=== PATIENT | male | born 1990 | race Asian ===

== ENCOUNTER 2021-05-22 09:04 | Outpatient (REF) | payer OTHER, SELFPAY ==
[2021-05-22 10:20] LABS: MANUAL DIFF FLAG NO
[2021-05-22 11:05] LABS: Basophils Percent Auto 0.2 % (0-2); Eosinophils Absolute Auto 0.1 X10*3/uL (0.0-0.4); Eosinophils Percent Auto 1.1 % (0-4); Hematocrit 45.8 % (42.0-52.0); Hemoglobin 15.6 g/dl (14.0-18.0); Imm Gran Abs Auto 0.02 X10*3/uL (0.00-0.03); Imm Gran Pct Auto 0.4 % (0.0-0.4); Lymphocytes Absolute Auto 2.1 X10*3/uL (1.2-4.9); Mean Corpuscular HGB Conc 34.1 g/dl (31.0-36.0); Mean Corpuscular Hemoglobin 30.3 pg (27.0-33.0); Mean Corpuscular Volume 88.9 fL (80.0-98.0); Mean Platelet Volume 12.1 fL (9.4-12.4); Monocytes Absolute Auto 0.5 X10*3/uL (0.1-1.2); Monocytes Percent Auto 8.9 % (2-11); Neutrophils Absolute Auto 3.1 x10*3/uL (2.0-8.3); Neutrophils Percent Auto 53.4 % (45-73); Platelet Count 151 X10*3/uL (160-400); Red Blood Count 5.15 X10*6/uL (4.60-5.80); Red Cell Distribution Width 13.1 % (11.0-16.0); White Blood Count 5.7 X10*3/uL (4.8-10.8)
[2021-05-22 11:56] LABS: Erythrocyte Sedimentation Rate 7 MM/HR (0-15)
[2021-05-22 12:12] LABS: C Reactive Protein 0.17 mg/dL (< or = 0.50)
== END 2021-05-22 09:05 | disposition home or self-care (01) ==
LOC: HO.LAB 09:04
PROVIDERS: PCP Internal Medicine; Visit Provider Internal Medicine Rheumatology
DX: M54.9 Dorsalgia, unspecified (principal); Z86.69 Personal history of other diseases of the nervous system and sense organs; Z79.899 Other long term (current) drug therapy
CPT/HCPCS: 36415; 85025; 85652; 86140; 99212

== ENCOUNTER → 2021-10-23 09:10 | Outpatient (BNVA) | payer OTHER, SELFPAY | PROVIDERS: PCP Internal Medicine; Visit Provider Internal Medicine Rheumatology | DX: M45.9 Ankylosing spondylitis of unspecified sites in spine (principal); M21.41 Flat foot [pes planus] (acquired), right foot; M21.42 Flat foot [pes planus] (acquired), left foot; Z79.899 Other long term (current) drug therapy; Z86.69 Personal history of other diseases of the nervous system and sense organs | CPT/HCPCS: 99212 ==

== ENCOUNTER 2022-07-03 10:11 | Outpatient (REF) | payer OTHER, SELFPAY ==
[2022-07-03 10:28] LABS: MANUAL DIFF FLAG NO
[2022-07-03 10:48] LABS: Basophils Percent Auto 0.3 % (0-2); Eosinophils Absolute Auto 0.1 X10*3/uL (0.0-0.4); Eosinophils Percent Auto 1.6 % (0-4); Hematocrit 41.4 % (42.0-52.0); Hemoglobin 14.1 g/dl (14.0-18.0); Imm Gran Abs Auto 0.02 X10*3/uL (0.00-0.03); Imm Gran Pct Auto 0.3 % (0.0-0.4); Lymphocytes Absolute Auto 2.4 X10*3/uL (1.2-4.9); Lymphocytes Percent Auto 35.1 % (20-40); Mean Corpuscular HGB Conc 34.1 g/dl (31.0-36.0); Mean Corpuscular Hemoglobin 29.6 pg (27.0-33.0); Mean Platelet Volume 10.9 fL (9.4-12.4); Monocytes Absolute Auto 0.5 X10*3/uL (0.1-1.2); Monocytes Percent Auto 7.5 % (2-11); Neutrophils Absolute Auto 3.8 x10*3/uL (2.0-8.3); Neutrophils Percent Auto 55.2 % (45-73); Platelet Count 228 X10*3/uL (160-400); Red Blood Count 4.76 X10*6/uL (4.60-5.80); Red Cell Distribution Width 12.9 % (11.0-16.0); White Blood Count 6.8 X10*3/uL (4.8-10.8)
[2022-07-03 11:29] LABS: Alanine Aminotransferase 15 U/L (0-40); Aspartate Amino Transferase 15 U/L (5-37); Estimated Glomerular Filt Rate > 60
[2022-07-03 11:31] LABS: Erythrocyte Sedimentation Rate 59 MM/HR (0-15)
== END 2022-07-03 10:12 | disposition home or self-care (01) ==
LOC: HO.LAB 10:11
PROVIDERS: Visit Provider Nurse Practitioner Family
DX: M45.9 Ankylosing spondylitis of unspecified sites in spine (principal); Z79.899 Other long term (current) drug therapy
CPT/HCPCS: 36415; 82565; 84450; 84460; 85025; 85652; 86140

== ENCOUNTER → 2022-07-12 08:43 | Outpatient (BNVA) | payer OTHER, SELFPAY | PROVIDERS: PCP Internal Medicine; Visit Provider Internal Medicine Rheumatology | DX: M45.9 Ankylosing spondylitis of unspecified sites in spine (principal); Z86.69 Personal history of other diseases of the nervous system and sense organs; Z79.899 Other long term (current) drug therapy | CPT/HCPCS: 99212 ==

== ENCOUNTER 2022-11-12 09:54 | Outpatient (REF) | payer OTHER, SELFPAY ==
[2022-11-12 11:16] LABS: MANUAL DIFF FLAG NO
[2022-11-12 12:02] LABS: Basophils Percent Auto 0.1 % (0-2); Eosinophils Absolute Auto 0.1 X10*3/uL (0.0-0.4); Eosinophils Percent Auto 1.9 % (0-4); Hematocrit 44.3 % (42.0-52.0); Hemoglobin 14.8 g/dl (14.0-18.0); Imm Gran Abs Auto 0.03 X10*3/uL (0.00-0.03); Imm Gran Pct Auto 0.4 % (0.0-0.4); Lymphocytes Absolute Auto 1.8 X10*3/uL (1.2-4.9); Lymphocytes Percent Auto 23.4 % (20-40); Mean Corpuscular HGB Conc 33.4 g/dl (31.0-36.0); Mean Corpuscular Hemoglobin 29.6 pg (27.0-33.0); Mean Corpuscular Volume 88.6 fL (80.0-98.0); Mean Platelet Volume 11.7 fL (9.4-12.4); Monocytes Absolute Auto 0.7 X10*3/uL (0.1-1.2); Monocytes Percent Auto 9.5 % (2-11); Neutrophils Absolute Auto 4.9 x10*3/uL (2.0-8.3); Neutrophils Percent Auto 64.7 % (45-73); Platelet Count 194 X10*3/uL (160-400); Red Cell Distribution Width 13.2 % (11.0-16.0); White Blood Count 7.6 X10*3/uL (4.8-10.8)
[2022-11-12 12:42] LABS: Erythrocyte Sedimentation Rate 45 MM/HR (0-15)
[2022-11-12 12:53] LABS: C Reactive Protein 2.61 mg/dL (< or = 0.50)
== END 2022-11-12 09:55 | disposition home or self-care (01) ==
LOC: HO.LAB 09:54
PROVIDERS: PCP Internal Medicine; Visit Provider Internal Medicine Rheumatology
DX: M45.9 Ankylosing spondylitis of unspecified sites in spine (principal); Z79.899 Other long term (current) drug therapy
CPT/HCPCS: 36415; 85025; 85652; 86140; 99212

== ENCOUNTER 2022-11-12 09:54 | Outpatient (AMB) | payer OTHER, SELFPAY ==
--- NOTE | 2022-11-12 09:58 | MHC.OFFVIS ---
Intake Vital Signs 11/12/22 09:59 Height 5 ft 5 in Weight 172 lb 9.951 oz BMI 28.7 BP 112/72 Blood Pressure Location Rt brachial Position Sitting Pulse 63 Pulse Source Pulse Oximeter Temp 97.6 F Temp Source Skin Pulse Oximetry (%) 97 Oxygen Delivery Method Room Air Intake Visit Reasons: Intake Note: Patient presents today to follow up on . Bobbin Cleaner Required: No Accompanied by: Self / Same As Patient Allergies No Known Allergies Allergy (Verified 11/12/22 09:59) HPI HPI Comments History of Present Illness Details The patient returns for evaluation of his ankylosing spondylitis. He remains on Humira 40 mg every 2 weeks. He still gets some pain in the upper back but it seems to be manageable. He does not really notice it much when he is working. He has not had any recent problems with eye pain or visual difficulties, skin rash, oral ulcers, or fevers. 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 At the end of his workday he gets some foot pain attributed to his flat feet. [facility] Medical History (Updated 07/12/22 @ 07:17 by Morales Cordova MD) Carpal tunnel syndrome of left wrist Long-term use of immunosuppressant medication History of uveitis Latent tuberculosis by blood test Ankylosing spondylitis Surgical History No history of previous surgery Family History Mother No problems noted. 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 Card Details: Negative chest pain, edema and syncope Resp Details: Negative for SOB, cough and wheezing GI Details: Negative indigestion/heartburn, nausea, abdominal pain, bowel changes, diarrhea, constipation and bloody stool. Skin/Breast Details: Negative for itching, rash, hives, Raynaud's symptoms, sun sensitivity, and skin cancer Neuro Details: Negative for epilepsy, palsy, stroke, changes in speech, tingling and weakness Petros/Lymph Details: Negative for excessive bruising or bleeding. Physical Exam Vital Signs: Last Vital Signs Temp 97.6 F 11/12/22 09:59 Pulse 63 11/12/22 09:59 BP 112/72 11/12/22 09:59 Pulse Ox 97 11/12/22 09:59 Oxygen Delivery Method Room Air 11/12/22 09:59 BMI result Body Mass Index 28.7 APPEARANCE: Patient in no acute distress EYES no redness, pupils equal and reactive to light, eyelids normal EXTREMITIES: No edema, no calf tenderness, normal peripheral pulses. SKIN: No inflammatory or neoplastic lesions. Normal color and turgor JOINT EXAM: Cervical Spine:? Lateral flexion limited at 15 degrees but without pain.? Rotation limited at about 45 degrees, again without pain.? With his heels against the wall he lacks about 6 cm of extension.No areas of tenderness. Thoracic Spine:.? No scoliosis.? No tenderness on palpation.? Lateral Janelle's shows only about 1 cm of movement. Lumbar Spine:.? Alignment normal.? No lumbar flexion or extension - Janelle's test 0 cm.? No tenderness. Chest Wall:.? No tenderness, swelling, increased warmth or erythema. Hands:.? Normal pain-free range of motion without tenderness, swelling, increased warmth or erythema.? No thenar atrophy or sensory loss. Wrists:.? Normal pain-free range of motion without tenderness, swelling, increased warmth or erythema.? Negative Phalen's and Tinel signs Elbows:. Normal pain-free range of motion without tenderness, swelling, increased warmth or erythema. Shoulders:.?? Full range of motion without pain. No tenderness, weakness, swelling, increased warmth or erythema. Hips:.? Full range of motion without pain. Hip bursa:.? No tenderness. Knees:.?? Normal pain-free range of motion without tenderness, swelling, increased warmth or erythema.? There is no effusion or crepitation Ankles:.? Right: Pain-free range of motion with some slight medial tenderness but no swelling.? Left:? Normal pain-free range of motion without tenderness, swelling, increased warmth or erythema. Feet:? Normal pain-free range of motion with some evidence of pes planus deformity.? No areas of tenderness, swelling, increased warmth or erythema. Results Reviewed Results Reviewed: Laboratory Tests 07/03/22 10:27 WBC 6.8 Hgb 14.1 ESR 59 H C-Reactive Protein 1.90 H Assessment & Plan Assessment & Plan (1) Long-term use of immunosuppressant medication: Code(s): Z79.899 - Other terminal makeup operator (current) drug therapy (2) Ankylosing spondylitis: Comment: Onset ? 2012, cervical, thoracic and lumbar involvement Hx of recurrent uveitis Humira started 01/28 Code(s): M45.9 - Ankylosing spondylitis of unspecified sites in spine Plan Ankylosing spondylitis with minimal motion in the lumbar and thoracic regions. The range of motion is also limited the cervical region. He still gets some upper thoracic area discomfort but I do not think it is enough to warrant changing his treatment. The last acute phase reactants were elevated for unclear reasons. We will recheck those today but at present it does not appear like he has any concomitant infectious process. We will aim for follow-up at about 4 months. Coding Level of Care Code Est Pt Level 3 (99050) Diagnoses Long-term use of immunosuppressant medication Z79.899 Ankylosing spondylitis M45.9
[2022-11-12 09:59] VITALS: BP 112/72; PULSE 63; TEMP 36.4; O2SAT 97; BMI 28.7
== END 2022-11-12 10:33 | disposition home or self-care (01) ==
PROVIDERS: PCP Internal Medicine; Visit Provider Internal Medicine Rheumatology
DX: Z79.899 Other long term (current) drug therapy (principal); M45.9 Ankylosing spondylitis of unspecified sites in spine
CPT/HCPCS: 99213

== ENCOUNTER 2023-03-19 09:37 | Outpatient (REF) | payer OTHER, SELFPAY ==
--- NOTE | ~2023-03-19 | XR_ITS ---
EXAMINATION: CERVICAL SPINE 3 VIEWS CLINICAL INFORMATION: Ankylosing spondylitis. COMPARISON: None. TECHNIQUE: Frontal, lateral and odontoid views are obtained. FINDINGS: Vertebral body heights and alignment are normal. At C3-C4, a 2 mm retrolisthesis is seen. The remaining disc spaces are well-maintained. No acute fracture or spondylolisthesis is seen. The posterior elements are intact. There is no prevertebral soft tissue swelling. The dens and C7-T1 interface are normal. XR/XR lumbar spine 2-3V IMPRESSION: There is very mild degenerative disc disease at C3-C4. EXAMINATION: XR THORACIC SPINE CLINICAL INFORMATION: Ankylosing spondylitis. COMPARISON: None available. TECHNIQUE: Frontal, lateral and swimmer's views of the thoracic spine were obtained. FINDINGS: Vertebral body heights are normal. There is a very mild lower thoracic levoscoliosis. No acute fracture or spondylolisthesis is seen. The thoracic disc spaces are well-maintained. There are multi-level lower thoracic and lumbar syndesmophytes, consistent with the provided history of ankylosing spondylitis. The posterior elements are intact. The paravertebral soft tissues are unremarkable. IMPRESSION: 1. Multi-level lower thoracic and upper lumbar syndesmophytes are seen, consistent with the provided history of ankylosing spondylitis. 2. The thoracic disc spaces are well-maintained. EXAMINATION: XR LUMBOSACRAL SPINE CLINICAL INFORMATION: Ankylosing spondylitis COMPARISON: None available. TECHNIQUE: AP and lateral views of the lumbar spine and lateral view of the lumbosacral junction. FINDINGS: Vertebral body heights are normal. There is moderate disc space narrowing at L4-L5. The remaining disc spaces are relatively well-maintained. There are multi-level lower thoracic and lumbar syndesmophytes, consistent with the provided history of ankylosing spondylitis. The posterior elements are intact. The paravertebral soft tissues are unremarkable. IMPRESSION: 1. Multi-level lower thoracic and upper lumbar syndesmophytes are seen, consistent with the provided history of ankylosing spondylitis. 2. The lumbar disc spaces are well-maintained.
--- NOTE | ~2023-03-19 | XR_ITS ---
EXAMINATION: CERVICAL SPINE 3 VIEWS CLINICAL INFORMATION: Ankylosing spondylitis. COMPARISON: None. TECHNIQUE: Frontal, lateral and odontoid views are obtained. FINDINGS: Vertebral body heights and alignment are normal. At C3-C4, a 2 mm retrolisthesis is seen. The remaining disc spaces are well-maintained. No acute fracture or spondylolisthesis is seen. The posterior elements are intact. There is no prevertebral soft tissue swelling. The dens and C7-T1 interface are normal. XR/XR thoracic spine 2V IMPRESSION: There is very mild degenerative disc disease at C3-C4. EXAMINATION: XR THORACIC SPINE CLINICAL INFORMATION: Ankylosing spondylitis. COMPARISON: None available. TECHNIQUE: Frontal, lateral and swimmer's views of the thoracic spine were obtained. FINDINGS: Vertebral body heights are normal. There is a very mild lower thoracic levoscoliosis. No acute fracture or spondylolisthesis is seen. The thoracic disc spaces are well-maintained. There are multi-level lower thoracic and lumbar syndesmophytes, consistent with the provided history of ankylosing spondylitis. The posterior elements are intact. The paravertebral soft tissues are unremarkable. IMPRESSION: 1. Multi-level lower thoracic and upper lumbar syndesmophytes are seen, consistent with the provided history of ankylosing spondylitis. 2. The thoracic disc spaces are well-maintained. EXAMINATION: XR LUMBOSACRAL SPINE CLINICAL INFORMATION: Ankylosing spondylitis COMPARISON: None available. TECHNIQUE: AP and lateral views of the lumbar spine and lateral view of the lumbosacral junction. FINDINGS: Vertebral body heights are normal. There is moderate disc space narrowing at L4-L5. The remaining disc spaces are relatively well-maintained. There are multi-level lower thoracic and lumbar syndesmophytes, consistent with the provided history of ankylosing spondylitis. The posterior elements are intact. The paravertebral soft tissues are unremarkable. IMPRESSION: 1. Multi-level lower thoracic and upper lumbar syndesmophytes are seen, consistent with the provided history of ankylosing spondylitis. 2. The lumbar disc spaces are well-maintained.
--- NOTE | ~2023-03-19 | XR_ITS ---
EXAMINATION: CERVICAL SPINE 3 VIEWS CLINICAL INFORMATION: Ankylosing spondylitis. COMPARISON: None. TECHNIQUE: Frontal, lateral and odontoid views are obtained. FINDINGS: Vertebral body heights and alignment are normal. At C3-C4, a 2 mm retrolisthesis is seen. The remaining disc spaces are well-maintained. No acute fracture or spondylolisthesis is seen. The posterior elements are intact. There is no prevertebral soft tissue swelling. The dens and C7-T1 interface are normal. XR/XR cervical spine 2V IMPRESSION: There is very mild degenerative disc disease at C3-C4. EXAMINATION: XR THORACIC SPINE CLINICAL INFORMATION: Ankylosing spondylitis. COMPARISON: None available. TECHNIQUE: Frontal, lateral and swimmer's views of the thoracic spine were obtained. FINDINGS: Vertebral body heights are normal. There is a very mild lower thoracic levoscoliosis. No acute fracture or spondylolisthesis is seen. The thoracic disc spaces are well-maintained. There are multi-level lower thoracic and lumbar syndesmophytes, consistent with the provided history of ankylosing spondylitis. The posterior elements are intact. The paravertebral soft tissues are unremarkable. IMPRESSION: 1. Multi-level lower thoracic and upper lumbar syndesmophytes are seen, consistent with the provided history of ankylosing spondylitis. 2. The thoracic disc spaces are well-maintained. EXAMINATION: XR LUMBOSACRAL SPINE CLINICAL INFORMATION: Ankylosing spondylitis COMPARISON: None available. TECHNIQUE: AP and lateral views of the lumbar spine and lateral view of the lumbosacral junction. FINDINGS: Vertebral body heights are normal. There is moderate disc space narrowing at L4-L5. The remaining disc spaces are relatively well-maintained. There are multi-level lower thoracic and lumbar syndesmophytes, consistent with the provided history of ankylosing spondylitis. The posterior elements are intact. The paravertebral soft tissues are unremarkable. IMPRESSION: 1. Multi-level lower thoracic and upper lumbar syndesmophytes are seen, consistent with the provided history of ankylosing spondylitis. 2. The lumbar disc spaces are well-maintained.
[2023-03-19 10:24] LABS: MANUAL DIFF FLAG NO
[2023-03-19 11:06] LABS: Basophils Percent Auto 0.1 % (0-2); Eosinophils Absolute Auto 0.1 X10*3/uL (0.0-0.4); Eosinophils Percent Auto 1.3 % (0-4); Hematocrit 43.8 % (42.0-52.0); Imm Gran Abs Auto 0.02 X10*3/uL (0.00-0.03); Imm Gran Pct Auto 0.3 % (0.0-0.4); Lymphocytes Percent Auto 28.8 % (20-40); Mean Corpuscular HGB Conc 34.2 g/dl (31.0-36.0); Mean Corpuscular Hemoglobin 29.9 pg (27.0-33.0); Mean Corpuscular Volume 87.4 fL (80.0-98.0); Mean Platelet Volume 11.9 fL (9.4-12.4); Monocytes Absolute Auto 0.6 X10*3/uL (0.1-1.2); Monocytes Percent Auto 8.8 % (2-11); Neutrophils Absolute Auto 4.2 x10*3/uL (2.0-8.3); Neutrophils Percent Auto 60.7 % (45-73); Platelet Count 185 X10*3/uL (160-400); Red Blood Count 5.01 X10*6/uL (4.60-5.80); Red Cell Distribution Width 14.3 % (11.0-16.0)
[2023-03-19 11:50] LABS: Erythrocyte Sedimentation Rate 34 MM/HR (0-15)
[2023-03-19 12:10] LABS: Alanine Aminotransferase 15 U/L (0-40); Albumin Level 4.2 g/dL (3.5-5.0); Alkaline Phosphatase 65 U/L (39-117); Anion Gap 14 (12-20); Aspartate Amino Transferase 15 U/L (5-37); Bilirubin Total 0.5 mg/dL (0.0-1.0); Blood Urea Nitrogen 15 mg/dL (9-16); C Reactive Protein 1.77 mg/dL (< or = 0.50); Calcium 9.4 mg/dL (8.4-10.2); Carbon Dioxide 27 mmol/L (22-29); Chloride 104 mmol/L (96-108); Estimated Glomerular Filt Rate > 60; Glucose Random 99 mg/dL (60-115); Potassium 3.9 mmol/L (3.3-5.1); Sodium 141 mmol/L (135-145)
== END 2023-03-19 09:38 | disposition home or self-care (01) ==
LOC: HO.LAB 09:37
PROVIDERS: PCP Internal Medicine; Visit Provider Nurse Practitioner Family
DX: M45.0 Ankylosing spondylitis of multiple sites in spine (principal); Z79.899 Other long term (current) drug therapy
CPT/HCPCS: 36415; 72040; 72070; 72100; 80053; 85025; 85652; 86140; 99212

== ENCOUNTER 2023-03-19 09:37 | Outpatient (AMB) | payer OTHER, SELFPAY ==
[2023-03-19 09:41] VITALS: BP 120/80; PULSE 74; TEMP 36.5; O2SAT 98; BMI 28.1
--- NOTE | 2023-03-19 09:41 | A.OFFVIS_ITS ---
Intake Vital Signs 03/19/23 09:41 Height 5 ft 5 in Weight 168 lb 10.458 oz BMI 28.1 BP 120/80 Blood Pressure Location Lt brachial Position Sitting Pulse 74 Pulse Source Pulse Oximeter Temp 97.7 F Temp Source Skin Pulse Oximetry (%) 98 Oxygen Delivery Method Room Air Intake Visit Reasons: Intake Note: Patient last seen by Dr Cordova on 11/12/22, presents today for follow up and test results. Database Administration Associate Required: No Accompanied by: Self / Same As Patient Allergies No Known Allergies Allergy (Verified 03/19/23 09:44) HPI HPI Comments History of Present Illness Details Mr. Pineda, 32 yoM patient returns for follow-up of his ankylosing spondylitis. He remains on Humira 40 mg every 2 weeks. He still gets some pain and stiffness in the upper back. He has not had any recent problems with eye pain or visual difficulties, skin rash, oral ulcers, or fevers. 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 This has been improved with orthotic supports in his sneakers. [facility] Medical History (Updated 03/19/23 @ 10:27 by [facility] Carpal tunnel syndrome of left wrist Long-term use of immunosuppressant medication History of uveitis Latent tuberculosis by blood test Ankylosing spondylitis Surgical History No history of previous surgery Family History Mother No problems noted. 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 Regular rhythm, S1-S2 heard, no murmurs, rubs or gallops. LUNG:? Clear to percussion and auscultation EXTREMITIES: No edema, no calf tenderness, normal peripheral pulses. SKIN: No inflammatory or neoplastic lesions. Normal color and turgor JOINT EXAM: Cervical Spine:? Lateral flexion limited at 15 degrees but without pain.? Rotation limited at about 45 degrees, again without pain.? With his heels against the wall he lacks about 6 cm of extension. No areas of tenderness. Thoracic Spine:.? No scoliosis.? Tenderness on palpation.? Lateral Janelle's shows only about 1 cm of movement. Lumbar Spine:.? Alignment normal.? No lumbar flexion or extension - Janelle's test 0 cm.? No tenderness. Chest Wall:.? No tenderness, swelling, increased warmth or erythema. Hands:.? Normal pain-free range of motion without tenderness, swelling, increased warmth or erythema.? No thenar atrophy or sensory loss. Wrists:.? Normal pain-free range of motion without tenderness, swelling, increased warmth or erythema.? Negative Phalen's and Tinel signs Elbows:. Normal pain-free range of motion without tenderness, swelling, increased warmth or erythema. Shoulders:.?? Full range of motion without pain. No tenderness, weakness, s welling, increased warmth or erythema. Hips:.? Full range of motion without pain. Hip bursa:.? No tenderness. Knees:.?? Normal pain-free range of motion without tenderness, swelling, increased warmth or erythema.? There is no effusion or crepitation Ankles:.? Right: Pain-free range of motion with some slight medial tenderness but no swelling.? Left:? Normal pain-free range of motion without tenderness, swelling, increased warmth or erythema. Feet:? Normal pain-free range of motion with some evidence of pes planus deformity.? No areas of tenderness, swelling, increased warmth or erythema. Results Reviewed Results Reviewed: Laboratory Tests 07/03/22 10:27 WBC 6.8 Hgb 14.1 ESR 59 H C-Reactive Protein 1.90 H Laboratory Tests 11/12/22 11:14 ESR 45 H C-Reactive Protein 2.61 H Assessment & Plan Assessment & Plan (1) Long-term use of immunosuppressant medication: Code(s): Z79.899 - Other snf (current) drug therapy (2) Ankylosing spondylitis: Comment: Onset ? 2012, cervical, thoracic and lumbar involvement Hx of recurrent uveitis Humira started 01/28 Code(s): M45.9 - Ankylosing spondylitis of unspecified sites in spine Qualifiers: Ankylosing spondylitis location: multiple sites in spine Qualified Cod e(s): M45.0 - Ankylosing spondylitis of multiple sites in spine Plan #:Ankylosing spondylitis with minimal motion in the lumbar and thoracic regions and tenderness to thoracic area. The range of motion is also limited the cervical region. He still gets some upper thoracic area discomfort and his ESR /CRP are markedly elevted so I think it is enough to warrant changing his treatment. We will increase to HUMIRA 40 mg weekly. We will recheck the ESR/CRP today and in 2 months. He denies any concomitant infectious process. Given the limited ROM, I will obtain updated spine Xrays to assess the extent of any ankylosing. #Residential Use: Patient knows to hold HMUIRA for infection, fevers, or non- healing wound. His last CBC is grossly normal. He has no s/s for cardiac concerns. Follow-up at about 2 months to assess for improvement after medication change. I spent 25 minutes reviewing chart, evaluating patient, documenting Orders: Orders XR cervical spine 2V Today M45.9 - Ankylosing spondylitis of unspecified sites in spine Erythrocyte Sedimentation Rate Today M45.9 - Ankylosing spondylitis of unspecified sites in spine, Z79.899 - Other application support lead (current) drug therapy C Reactive Protein Today M45.9 - Ankylosing spondylitis of unspecified sites in spine, Z79.899 - Other snf (current) drug therapy Complete Blood Count Auto Diff Today M45.9 - Ankylosing spondylitis of unspecified sites in spine, Z79.899 - Other application support lead (current) drug therapy Comprehensive Met. Panel Today M45.9 - Ankylosing spondylitis of unspecified sites in spine, Z79.899 - Other application support lead (current) drug therapy XR thoracic spine 2V Today M45.9 - Ankylosing spondylitis of unspecified sites in spine XR lumbar spine 2-3V Today M45.9 - Ankylosing spondylitis of unspecified sites in spine Medications: Changed From adalimumab (Humira(CF) Pen) 40 mg (0.4 mL) subcut Q2W 1 ea 5RF M45.9 - Ankylosing spondylitis of unspecified sites in spine To adalimumab (Humira(CF) Pen) 40 mg (0.4 mL) subcut QWEEK 2 ea 5RF M45.9 - Ankylosing spondylitis of unspecified sites in spine Coding Level of Care Code Est Pt Level 3 (23568) Diagnoses Long-term use of immunosuppressant medication Z79.899 Ankylosing spondylitis of multiple sites in spine M45.0 Ankylosing spondylitis location: multiple sites in spine
== END 2023-03-19 10:03 | disposition home or self-care (01) ==
PROVIDERS: PCP Internal Medicine; Visit Provider Nurse Practitioner Family
DX: Z79.899 Other long term (current) drug therapy (principal); M45.0 Ankylosing spondylitis of multiple sites in spine
CPT/HCPCS: 99213

== ENCOUNTER 2023-05-21 09:31 | Outpatient (REF) | payer OTHER, SELFPAY ==
[2023-05-21 10:18] LABS: MANUAL DIFF FLAG NO
[2023-05-21 10:42] LABS: Basophils Percent Auto 0.3 % (0-2); Eosinophils Absolute Auto 0.1 X10*3/uL (0.0-0.4); Eosinophils Percent Auto 1.2 % (0-4); Hematocrit 46.2 % (42.0-52.0); Hemoglobin 16.1 g/dl (14.0-18.0); Imm Gran Abs Auto 0.02 X10*3/uL (0.00-0.03); Imm Gran Pct Auto 0.3 % (0.0-0.4); Lymphocytes Absolute Auto 2.3 X10*3/uL (1.2-4.9); Lymphocytes Percent Auto 40.6 % (20-40); Mean Corpuscular HGB Conc 34.8 g/dl (31.0-36.0); Mean Corpuscular Hemoglobin 30.6 pg (27.0-33.0); Mean Corpuscular Volume 87.7 fL (80.0-98.0); Mean Platelet Volume 12.1 fL (9.4-12.4); Monocytes Absolute Auto 0.5 X10*3/uL (0.1-1.2); Monocytes Percent Auto 8.4 % (2-11); Neutrophils Absolute Auto 2.8 x10*3/uL (2.0-8.3); Neutrophils Percent Auto 49.2 % (45-73); Platelet Count 169 X10*3/uL (160-400); Red Blood Count 5.27 X10*6/uL (4.60-5.80); Red Cell Distribution Width 14.2 % (11.0-16.0); White Blood Count 5.7 X10*3/uL (4.8-10.8)
[2023-05-21 11:37] LABS: Erythrocyte Sedimentation Rate 6 MM/HR (0-15)
[2023-05-21 12:11] LABS: Alanine Aminotransferase 26 U/L (0-40); Albumin Level 4.3 g/dL (3.5-5.0); Alkaline Phosphatase 57 U/L (39-117); Anion Gap 11 (12-20); Aspartate Amino Transferase 24 U/L (5-37); Bilirubin Total 0.6 mg/dL (0.0-1.0); Blood Urea Nitrogen 17 mg/dL (9-16); C Reactive Protein < 0.10 mg/dL (< or = 0.50); Calcium 8.9 mg/dL (8.4-10.2); Carbon Dioxide 25 mmol/L (22-29); Chloride 108 mmol/L (96-108); Estimated Glomerular Filt Rate > 60; Glucose Random 118 mg/dL (60-115); Potassium 3.9 mmol/L (3.3-5.1); Sodium 140 mmol/L (135-145)
== END 2023-05-21 09:32 | disposition home or self-care (01) ==
LOC: HO.LAB 09:31
PROVIDERS: PCP Internal Medicine; Visit Provider Nurse Practitioner Family
DX: M45.0 Ankylosing spondylitis of multiple sites in spine (principal); Z79.899 Other long term (current) drug therapy
CPT/HCPCS: 36415; 80053; 85025; 85652; 86140; 99212

== ENCOUNTER 2023-05-21 09:31 | Outpatient (AMB) | payer OTHER, SELFPAY ==
--- NOTE | 2023-05-21 09:31 | A.OFFVIS_ITS ---
Intake Vital Signs 05/21/23 09:37 Height 5 ft 5 in Weight 168 lb 10.458 oz BMI 28.1 BP 122/70 Blood Pressure Location Rt brachial Position Sitting Pulse 99 Pulse Source Pulse Oximeter Temp 97 F Temp Source Skin Pulse Oximetry (%) 97 Oxygen Delivery Method Room Air Intake Visit Reasons: /Elevated Sed and CRP/cm Intake Note: Patient last seen 03/19/23, presents today for follow up and test results. Glaucoma Specialist Required: No Accompanied by: Self / Same As Patient Allergies No Known Allergies Allergy (Verified 05/21/23 09:32) HPI HPI Comments History of Present Illness Details Mr. Pineda, 32 yoM patient returns for follow-up of his ankylosing spondylitis. At last visit we increase the Humira to weekly and he reports that that has been helpful. He can feel the big difference especially in the mornings when he wakes, he feels less stiffness and soreness. He will continue Humira 40 mg every week. He has not had any recent problems with eye pain or visual difficulties, skin rash, oral ulcers, or fevers. He has not had SOB or chest pains. 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 He says once he keeps moving he feels less discomfort. At the end of his workday he continues to get some foot pain attributed to his flat feet. This has been improved with orthotic supports in his sneakers. [facility] Medical History (Updated 03/19/23 @ 10:27 [facility] Carpal tunnel syndrome of left wrist Long-term use of immunosuppressant medication History of uveitis Latent tuberculosis by blood test Ankylosing spondylitis Surgical History No history of previous surgery Family History Mother No problems noted. 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 Regular rhythm, S1-S2 heard, no murmurs, rubs or gallops. LUNG:? Clear to percussion and auscultation EXTREMITIES: No edema, no calf tenderness, normal peripheral pulses. SKIN: No inflammatory or neoplastic lesions. Normal color and turgor JOINT EXAM: Cervical Spine:? Lateral flexion limited at 15 degrees but without pain.? Rotation limited at about 45 degrees, again without pain.? With his heels against the wall he lacks about 6 cm of extension. No areas of tenderness. Thoracic Spine:.? No scoliosis.? no more Tenderness on palpation.? Lateral Janelle's shows only about 1 cm of movement. Lumbar Spine:.? Alignment normal.? No lumbar flexion or extension - Janelle's test 0 cm.? No tenderness. Chest Wall:.? No tenderness, swelling, increased warmth or erythema. Hands:.? Normal pain-free range of motion without tenderness, swelling, increased warmth or erythema.? No thenar atrophy or sensory loss. Wrists:.? Normal pain-free range of motion without tenderness, swelling, increased warmth or erythema.? Negative Phalen's and Tinel signs Elbows:. Normal pain-free range of motion without tenderness, swelling, increased warmth or erythema. Shoulders:.?? Full range of motion without pain. No tenderness, weakness, s welling, increased warmth or erythema. Hips:.? Full range of motion without pain. Hip bursa:.? No tenderness. Knees:.?? Normal pain-free range of motion without tenderness, swelling, increased warmth or erythema.? There is no effusion or crepitation Ankles:.? Right: Pain-free range of motion with some slight medial tenderness but no swelling.? Left:? Normal pain-free range of motion without tenderness, swelling, increased warmth or erythema. Feet:? Normal pain-free range of motion with some evidence of pes planus deformity.? No areas of tenderness, swelling, increased warmth or erythema. Results Reviewed Results Reviewed: Laboratory Tests 07/03/22 10:27 WBC 6.8 Hgb 14.1 ESR 59 H C-Reactive Protein 1.90 H Laboratory Tests 11/12/22 11:14 ESR 45 H C-Reactive Protein 2.61 H Laboratory Tests 03/19/23 10:23 ESR 34 H Creatinine 0.78 AST 15 ALT 15 Alkaline Phosphatase 65 C-Reactive Protein 1.77 H Ordering Physician: Ne Santillan Date of Service: 03/19/23 Procedure(s): XR thoracic spine 2V Accession Number(s): [id number] cc: Mariano Cummins MD; Ne Santillan~ EXAMINATION: CERVICAL SPINE 3 VIEWS CLINICAL INFORMATION: Ankylosing spondylitis. COMPARISON: None. TECHNIQUE: Frontal, lateral and odontoid views are obtained. FINDINGS: Vertebral body heights and alignment are normal. At C3-C4, a 2 mm retrolisthesis is seen. The remaining disc spaces are well-maintained. No acute fracture or spondylolisthesis is seen. The posterior elements are intact. There is no prevertebral soft tissue swelling. The dens and C7-T1 interface are normal. XR/XR thoracic spine 2V IMPRESSION: There is very mild degenerative disc disease at C3-C4. EXAMINATION: XR THORACIC SPINE CLINICAL INFORMATION: Ankylosing spondylitis. COMPARISON: None available. TECHNIQUE: Frontal, lateral and swimmer's views of the thoracic spine were obtained. FINDINGS: Vertebral body heights are normal. There is a very mild lower thoracic levoscoliosis. No acute fracture or spondylolisthesis is seen. The thoracic disc spaces are well-maintained. There are multi-level lower thoracic and lumbar syndesmophytes, consistent with the provided history of ankylosing spondylitis. The posterior elements are intact. The paravertebral soft tissues are unremarkable. IMPRESSION: 1. Multi-level lower thoracic and upper lumbar syndesmophytes are seen, consistent with the provided history of ankylosing spondylitis. 2. The thoracic disc spaces are well-maintained. EXAMINATION: XR LUMBOSACRAL SPINE CLINICAL INFORMATION: Ankylosing spondylitis COMPARISON: None available. TECHNIQUE: AP and lateral views of the lumbar spine and lateral view of the lumbosacral junction. FINDINGS: Vertebral body heights are normal. There is moderate disc space narrowing at L4-L5. The remaining disc spaces are relatively well-maintained. There are multi-level lower thoracic and lumbar syndesmophytes, consistent with the provided history of ankylosing spondylitis. The posterior elements are intact. The paravertebral soft tissues are unremarkable. IMPRESSION: 1. Multi-level lower thoracic and upper lumbar syndesmophytes are seen, consistent with the provided history of ankylosing spondylitis. 2. The lumbar disc spaces are well-maintained. Assessment & Plan Assessment & Plan (1) Long-term use of immunosuppressant medication: Code(s): Z79.899 - [facility] [place] [facility] drug therapy (2) Ankylosing spondylitis: Comment: Onset ? 2012, cervical, thoracic and lumbar involvement Hx of recurrent uveitis Humira started 01/28 Code(s): M45.9 - Ankylosing spondylitis of unspecified sites in spine Qualifiers: Ankylosing spondylitis location: multiple sites in spine Qualified Code(s): M45.0 - Ankylosing spondylitis of multiple sites in spine Plan #:Ankylosing spondylitis with minimal motion in the lumbar and thoracic regions and tenderness to thoracic area. The range of motion is also limited the cervical region. Recent Xrays supports syndesmosphytes to lower thoracic and upper lumbar regions. His upper thoracic area discomfort has been improved by the change to HUMIRA weekly. We hope this change will slow down the bamboo-ing of the spine. We do need updated labs to see if his ESR /CRP are also improved. He denies any concomitant infectious process since last visit. #Shelter Use: Patient knows to hold HMUIRA for infection, fevers, surgery or non-healing wound. His last CBC is grossly normal. He has no s/s for cardiac c oncerns. 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 Panel Today M45.0 - Ankylosing spondylitis of multiple sites in spine, Z79.899 - Other well drill operator cable tool (current) drug therapy Erythrocyte Sedimentation Rate 4 Months M45.0 - Ankylosing spondylitis of multiple sites in spine, Z79.899 - Other well drill operator cable tool (current) drug therapy C Reactive Protein 4 Months M45.0 - Ankylosing spondylitis of multiple sites in spine, Z79.899 - Other well drill operator cable tool (current) drug therapy Complete Blood Count Auto Diff 4 Months M45.0 - Ankylosing spondylitis of mult iple sites in spine, Z79.899 - Other well drill operator cable tool (current) drug therapy C Reactive Protein Today M45.0 - Ankylosing spondylitis of multiple sites in spine, Z79.899 - Other well drill operator cable tool (current) drug therapy Comprehensive Met. Panel 4 Months M45.0 - Ankylosing spondylitis of multiple sites in spine, Z79.899 - Other well drill operator cable tool (current) drug therapy Coding Level of Care Code Est Pt Level 3 (17959) Diagnoses Long-term use of immunosuppressant medication Z79.899 Ankylosing spondylitis of multiple sites in spine M45.0 Ankylosing spondylitis location: multiple sites in spine
[2023-05-21 09:37] VITALS: BP 122/70; PULSE 99; TEMP 36.1; O2SAT 97; BMI 28.1
== END 2023-05-21 09:51 | disposition home or self-care (01) ==
PROVIDERS: PCP Internal Medicine; Visit Provider Nurse Practitioner Family
DX: Z79.899 Other long term (current) drug therapy (principal); M45.0 Ankylosing spondylitis of multiple sites in spine
CPT/HCPCS: 99213

== ENCOUNTER 2023-09-09 10:23 | Outpatient (REF) | payer OTHER, SELFPAY ==
[2023-09-09 10:37] LABS: MANUAL DIFF FLAG NO
[2023-09-09 11:18] LABS: Basophils Percent Auto 0.2 % (0-2); Eosinophils Absolute Auto 0.1 X10*3/uL (0.0-0.4); Eosinophils Percent Auto 1.2 % (0-4); Hematocrit 43.3 % (42.0-52.0); Hemoglobin 15.6 g/dl (14.0-18.0); Imm Gran Abs Auto 0.02 X10*3/uL (0.00-0.03); Imm Gran Pct Auto 0.3 % (0.0-0.4); Lymphocytes Absolute Auto 2.4 X10*3/uL (1.2-4.9); Lymphocytes Percent Auto 40.2 % (20-40); Mean Corpuscular Hemoglobin 32.4 pg (27.0-33.0); Monocytes Absolute Auto 0.5 X10*3/uL (0.1-1.2); Monocytes Percent Auto 8.4 % (2-11); Neutrophils Percent Auto 49.7 % (45-73); Platelet Count 179 X10*3/uL (160-400); Red Blood Count 4.81 X10*6/uL (4.60-5.80); Red Cell Distribution Width 12.5 % (11.0-16.0)
[2023-09-09 12:02] LABS: Erythrocyte Sedimentation Rate 6 MM/HR (0-15)
[2023-09-09 12:20] LABS: Alanine Aminotransferase 36 U/L (0-40); Albumin Level 4.4 g/dL (3.5-5.0); Alkaline Phosphatase 57 U/L (39-117); Anion Gap 13 (12-20); Aspartate Amino Transferase 27 U/L (5-37); Bilirubin Total 0.8 mg/dL (0.0-1.0); Blood Urea Nitrogen 17 mg/dL (9-16); C Reactive Protein 0.17 mg/dL (< or = 0.50); Calcium 9.7 mg/dL (8.4-10.2); Carbon Dioxide 29 mmol/L (22-29); Chloride 102 mmol/L (96-108); Estimated Glomerular Filt Rate > 60; Glucose Random 103 mg/dL (60-115); Potassium 3.8 mmol/L (3.3-5.1); Sodium 140 mmol/L (135-145); Total Protein 8.1 g/dL (6.5-8.0)
== END 2023-09-09 10:24 | disposition home or self-care (01) ==
LOC: HO.LAB 10:23
PROVIDERS: Visit Provider Nurse Practitioner Family
DX: Z79.899 Other long term (current) drug therapy (principal); M45.0 Ankylosing spondylitis of multiple sites in spine
CPT/HCPCS: 36415; 80053; 85025; 85652; 86140

== ENCOUNTER 2023-09-20 09:48 | Outpatient (AMB) | payer OTHER, SELFPAY ==
--- NOTE | 2023-09-20 09:55 | MHC.OFFVIS ---
Vital Signs 09/20/23 09:58 Height 5 ft 5 in Weight 176 lb 5.917 oz BMI 29.3 BP 116/80 Blood Pressure Location Lt brachial Position Sitting Pulse 67 Pulse Source Pulse Oximeter Pulse Oximetry (%) 97 Oxygen Delivery Method Room Air Intake Visit Reasons: /CM Intake Note: Patient presents for . Allergies No Known Allergies Allergy (Verified 09/20/23 09:57) Medication List - Last Reconciled 09/20/23 by Yury Roper MD adalimumab (Humira(CF) Pen) 40 mg (0.4 mL) subcut QWEEK HPI Comments Details: This is a [age]-year-old male with ankylosing spondylitis who returns for follow-up. He remains on Humira 40 mg weekly. Stated that since Humira was advanced to 40 mg weekly he has done better overall. He gets intermittent pain and stiffness of his upper thoracic spine but overall doing well with no morning stiffness denies any swollen joints. No recent eye issues. [facility] Medical History Carpal tunnel syndrome of left wrist Long-term use of immunosuppressant medication History of uveitis Latent tuberculosis by blood test Ankylosing spondylitis Surgical History No history of previous surgery Family History Mother No problems noted. 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 [place] pain, Denies arthralgias, Denies joint swelling, Denies limited range of motion and Denies stiffness Physical Exam Vital Signs: Last Vital Signs Pulse 67 09/20/23 09:58 BP 116/80 09/20/23 09:58 Pulse Ox 97 09/20/23 09:58 Oxygen Delivery Method Room Air 09/20/23 09:58 BMI result Body Mass Index 29.3 Const General: cooperative, healthy appearing and comfortable Nutritional Appearance: overweight Orientation/consciousness: patient oriented x3 Limitations: no limitations HEENT Head: Yes normocephalic and Yes atraumatic Mouth: moist mucous membranes Resp Effort & Inspection: normal respiratory effort and able to speak in complete sentences Auscultation: clear to auscultation bilaterally Cardio Rate: regular rate Rhythm: regular rhythm Skin General skin exam: no rashes or lesions noted Neuro General: patient oriented x3 Extrem Other: No active synovitis both hands, wrists Normal range of motion of elbows and shoulders without pain Slightly limited neck extension Limited lateral flexion test bilaterally Janelle test 10-11 cm Negative straight leg raise test bilaterally Negative Fabere test bilaterally No knee swelling or tenderness bilaterally No knee pain with flexion-extension bilaterally Results Reviewed Results Reviewed: Laboratory Tests 07/03/22 10:27 Laboratory Tests Laboratory Tests Ordering Physician: Ne Santillan Date of Service: 03/19/23 Procedure(s): XR thoracic spine 2V Accession Number(s): [id number] cc: Mariano Cummins MD; Ne Santillan~ EXAMINATION: CERVICAL SPINE 3 VIEWS CLINICAL INFORMATION: Ankylosing spondylitis. COMPARISON: None. TECHNIQUE: Frontal, lateral and odontoid views are obtained. FINDINGS: Vertebral body heights and alignment are normal. At C3-C4, a 2 mm retrolisthesis is seen. The remaining disc spaces are well-maintained. No acute fracture or spondylolisthesis is seen. The posterior elements are intact. There is no prevertebral soft tissue swelling. The dens and C7-T1 interface are normal. XR/XR thoracic spine 2V IMPRESSION: There is very mild degenerative disc disease at C3-C4. EXAMINATION: XR THORACIC SPINE CLINICAL INFORMATION: Ankylosing spondylitis. COMPARISON: None available. TECHNIQUE: Frontal, lateral and swimmer's views of the thoracic spine were obtained. FINDINGS: Vertebral body heights are normal. There is a very mild lower thoracic levoscoliosis. No acute fracture or spondylolisthesis is seen. The thoracic disc spaces are well-maintained. There are multi-level lower thoracic and lumbar syndesmophytes, consistent with the provided history of ankylosing spondylitis. The posterior elements are intact. The paravertebral soft tissues are unremarkable. IMPRESSION: 1. Multi-level lower thoracic and upper lumbar syndesmophytes are seen, consistent with the provided history of ankylosing spondylitis. 2. The thoracic disc spaces are well-maintained. EXAMINATION: XR LUMBOSACRAL SPINE CLINICAL INFORMATION: Ankylosing spondylitis COMPARISON: None available. TECHNIQUE: AP and lateral views of the lumbar spine and lateral view of the lumbosacral junction. FINDINGS: Vertebral body heights are normal. There is moderate disc space narrowing at L4-L5. The remaining disc spaces are relatively well-maintained. There are multi-level lower thoracic and lumbar syndesmophytes, consistent with the provided history of ankylosing spondylitis. The posterior elements are intact. The paravertebral soft tissues are unremarkable. IMPRESSION: 1. Multi-level lower thoracic and upper lumbar syndesmophytes are seen, consistent with the provided history of ankylosing spondylitis. 2. The lumbar disc spaces are well-maintained. Assessment & Plan Assessment & Plan (1) Ankylosing spondylitis: Comment: Onset ? 2012, cervical, thoracic and lumbar involvement. HLA b27 status unknown (? Test Not covered by insurance) Hx of recurrent uveitis Humira started 01/28 effective, advanced to weekly 03/2023 effective Code(s): M45.9 - Ankylosing spondylitis of unspecified sites in spine Category: Medical Qualifiers: Ankylosing spondylitis location: multiple sites in spine Qualified Code(s): M45.0 - Ankylosing spondylitis of multiple sites in spine Plan: This is a 33-year-old male with HLA B27 positive ankylosing spondylitis who presents for follow-up. This is his 1st visit with me. He is on Humira 40 mg weekly. Doing well overall with no active disease. Continue Humira 40 mg weekly Labs before next visit in 4 (2) Long-term use of immunosuppressant medication: Code(s): Z79.899 - Other [facility] long term care (current) drug therapy Category: Medical Plan: Side effects of Enbrel were discussed with the patient in detail including increased risk of infection, demyelinating disease, reactivation of latent TB, possible increased risk of solid and skin tumors. Patient fully aware. Advised patient to seek medical care MELONIE if patient has an infection and advised patient to stop the medication until the infection is resolved. 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: Comment: INH started 10/29 - finishing off 6/19 Code(s): Z22.7 - Latent tuberculosis Category: Medical Plan: No need to repeat QuantiFERON test Plan I spent 30 minutes reviewing patient's chart, evaluating patient, ordering diagnostic workup, counseling patient and documenting in the chart Orders: Orders C Reactive Protein 4 Months M45.0 - Ankylosing spondylitis of multiple sites in spine, Z79.899 - [facility] [place] [facility] drug [facility] Hepatitis A,B,C Profile 4 Months M45.0 - Ankylosing spondylitis of multiple sites in spine, Z79.899 - [facility] [place] [facility] drug therapy Complete Blood Count Auto Diff 4 Months M45.0 - Ankylosing spondylitis of multiple sites in spine, Z79.899 - Other [facility] (current) drug therapy Comprehensive Met. Panel 4 Months M45.0 - Ankylosing spondylitis of multiple sites in spine, Z79.899 - [facility] [place] [facility] drug therapy Erythrocyte Sedimentation Rate 4 Months M45.0 - Ankylosing spondylitis of multiple sites in spine, Z79.899 - Other [facility] (current) drug therapy Coding Level of Care Code Est Pt Level 4 (45142) Diagnoses Ankylosing spondylitis of multiple sites in spine M45.0 Ankylosing spondylitis location: multiple sites in spine Long-term use of immunosuppressant medication Z79.899 Latent tuberculosis by blood test Z22.7
[2023-09-20 09:58] VITALS: BP 116/80; PULSE 67; O2SAT 97; BMI 29.3
== END 2023-09-20 10:29 | disposition home or self-care (01) ==
PROVIDERS: PCP Internal Medicine; Visit Provider Student in an Organized Health Care Education/Training Program
DX: M45.0 Ankylosing spondylitis of multiple sites in spine (principal); Z79.899 Other long term (current) drug therapy; Z22.7 Latent tuberculosis
CPT/HCPCS: 99214

== ENCOUNTER → 2023-09-20 09:48 | Outpatient (BNVA) | payer OTHER, SELFPAY | PROVIDERS: PCP Internal Medicine; Visit Provider Student in an Organized Health Care Education/Training Program | DX: M45.0 Ankylosing spondylitis of multiple sites in spine (principal); Z22.7 Latent tuberculosis; Z79.899 Other long term (current) drug therapy | CPT/HCPCS: 99212 ==

== ENCOUNTER 2024-01-17 09:06 | Outpatient (REF) | payer OTHER, SELFPAY ==
[2024-01-17 09:33] LABS: MANUAL DIFF FLAG NO
[2024-01-17 10:40] LABS: Basophils Percent Auto 0.2 % (0-2); Eosinophils Absolute Auto 0.1 X10*3/uL (0.0-0.4); Eosinophils Percent Auto 1.3 % (0-4); Hematocrit 42.7 % (42.0-52.0); Hemoglobin 14.9 g/dl (14.0-18.0); Imm Gran Abs Auto 0.02 X10*3/uL (0.00-0.03); Imm Gran Pct Auto 0.4 % (0.0-0.4); Lymphocytes Absolute Auto 2.2 X10*3/uL (1.2-4.9); Mean Corpuscular HGB Conc 34.9 g/dl (31.0-36.0); Mean Corpuscular Hemoglobin 31.5 pg (27.0-33.0); Mean Corpuscular Volume 90.3 fL (80.0-98.0); Mean Platelet Volume 11.5 fL (9.4-12.4); Monocytes Absolute Auto 0.5 X10*3/uL (0.1-1.2); Monocytes Percent Auto 8.7 % (2-11); Neutrophils Absolute Auto 2.7 x10*3/uL (2.0-8.3); Neutrophils Percent Auto 49.4 % (45-73); Platelet Count 186 X10*3/uL (160-400); Red Blood Count 4.73 X10*6/uL (4.60-5.80); Red Cell Distribution Width 12.5 % (11.0-16.0); White Blood Count 5.5 X10*3/uL (4.8-10.8)
[2024-01-17 11:21] LABS: Erythrocyte Sedimentation Rate 6 MM/HR (0-15)
[2024-01-17 11:27] LABS: Alanine Aminotransferase 27 U/L (0-40); Albumin Level 4.3 g/dL (3.5-5.0); Alkaline Phosphatase 45 U/L (39-117); Anion Gap 9 (12-20); Aspartate Amino Transferase 25 U/L (5-37); Bilirubin Total 0.8 mg/dL (0.0-1.0); Blood Urea Nitrogen 19 mg/dL (9-16); C Reactive Protein < 0.10 mg/dL (< or = 0.50); Calcium 9.2 mg/dL (8.4-10.2); Carbon Dioxide 29 mmol/L (22-29); Chloride 107 mmol/L (96-108); Estimated Glomerular Filt Rate > 60; Glucose Random 89 mg/dL (60-115); Potassium 3.8 mmol/L (3.3-5.1); Sodium 141 mmol/L (135-145); Total Protein 7.7 g/dL (6.5-8.0)
[2024-01-17 11:41] LABS: HBS Num1 17.54 mIU/mL (0-7.99); HBc Num1 0.07 S/CO (0.00-0.79); HBsAGNum1 0.45 S/CO (0.00-0.99); Hepatitis A Antibody IgM 0.19 Index (0-0.79); Hepatitis B Core Antibody Nonreactive (Nonreactive); Hepatitis B Surface Antigen Negative (Negative); ~HepC Num1 0.12 S/CO (0.00-0.79); ~Hepatitis A Antibody IgM Nonreactive (Nonreactive); ~Hepatitis B Surface Antibody REACTIVE (Nonreactive); ~Hepatitis C Antibody Nonreactive (Nonreactive)
== END 2024-01-17 09:07 | disposition home or self-care (01) ==
LOC: HO.LAB 09:06
PROVIDERS: PCP Internal Medicine; Visit Provider Student in an Organized Health Care Education/Training Program
DX: M45.0 Ankylosing spondylitis of multiple sites in spine (principal); Z79.899 Other long term (current) drug therapy
CPT/HCPCS: 36415; 80053; 85025; 85652; 86140; 86704; 86706; 86709; 86803; 87340

== ENCOUNTER 2024-02-25 12:37 | Outpatient (AMB) | payer OTHER, SELFPAY ==
--- NOTE | 2024-02-25 12:40 | A.OFFVIS_ITS ---
Vital Signs 02/25/24 12:45 Height 5 ft 5 in Weight 174 lb 6.17 oz BMI 29.0 BP 120/70 Blood Pressure Location Rt brachial Position Sitting Pulse 97 Pulse Source Pulse Oximeter Pulse Oximetry (%) 96 Oxygen Delivery Method Room Air Intake Visit Reasons: Intake Note: Patient presents for . Allergies No Known Allergies Allergy (Verified 02/25/24 12:45) Medication List - Last Reconciled 02/25/24 by Yury Roper MD adalimumab-aaty 40 mg (0.4 mL) subcut QWEEK NS HPI Comments Details: This is a [age]-year-old male with ankylosing spondylitis who returns for follow- up. He remains on Humira 40 mg weekly. He gets intermittent pain and stiffness of his upper thoracic spine but overall doing well with no morning stiffness denies any swollen joints. Does not take anything for pain like Tylenol or NSAIDs. No recent eye issues. Denies any recent infections [facility] Medical History Carpal tunnel syndrome of left wrist Long-term use of immunosuppressant medication History of uveitis Latent tuberculosis by blood test Ankylosing spondylitis Surgical History No history of previous surgery Family History Mother No problems noted. 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 [employer] Reports back pain, Denies arthralgias, Denies joint swelling, Denies limited range of motion and Denies stiffness Physical Exam Vital Signs: Last Vital Signs Pulse 97 02/25/24 12:45 BP 120/70 02/25/24 12:45 Pulse Ox 96 02/25/24 12:45 Oxygen Delivery Method Room Air 02/25/24 12:45 BMI result Body Mass Index 29.0 Const General: cooperative, healthy appearing and comfortable Nutritional Appearance: overweight Orientation/consciousness: patient oriented x3 Limitations: no limitations HEENT Head: Yes normocephalic and Yes atraumatic Mouth: moist mucous membranes Resp Effort & Inspection: normal respiratory effort and able to speak in complete sentences Auscultation: clear to auscultation bilaterally Cardio Rate: regular rate Rhythm: regular rhythm Skin General skin exam: no rashes or lesions noted Neuro General: patient oriented x3 Extrem Other: No active synovitis both hands, wrists Normal range of motion of elbows and shoulders without pain Slightly limited neck extension Limited lateral flexion test bilaterally Janelle test 10-10.8 cm Negative straight leg raise test bilaterally Negative Fabere test bilaterally No knee swelling or tenderness bilaterally No knee pain with flexion-extension bilaterally Assessment & Plan Assessment & Plan (1) Ankylosing spondylitis: Comment: Onset ? 2012, cervical, thoracic and lumbar involvement. HLA b27 status unknown (? Test Not covered by insurance) Hx of recurrent uveitis Humira started 01/28 effective, advanced to weekly 03/2023 effective Code(s): M45.9 - Ankylosing spondylitis of unspecified sites in spine Category: Medical Qualifiers: Ankylosing spondylitis location: multiple sites in spine Qualified Code(s): M45.0 - Ankylosing spondylitis of multiple sites in spine Plan: This is a 33-year-old male with ankylosing spondylitis who presents for follow- up. Doing well overall with no active disease. Continue Humira 40 mg weekly Labs before next visit in 6 months (2) Long-term use of immunosuppressant medication: Code(s): Z79.899 - Other long filler cigar roller machine (current) drug therapy Category: Medical Plan: Side effects of Humira were discussed with the patient in detail including increased risk of infection, demyelinating disease, reactivation of latent TB, possible increased risk of solid and skin tumors. Patient fully aware. Advised patient to seek medical care MELONIE if patient has an infection and advised patient to stop the medication until the infection is resolved. 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: Comment: INH started 10/29 - finishing off 07/30 Code(s): Z22.7 - Latent tuberculosis Category: Medical Plan: No need to repeat QuantiFERON test Plan I spent 20 minutes reviewing patient's chart, evaluating patient, ordering diagnostic workup, counseling patient and documenting in the chart Orders: Orders Complete Blood Count Auto Diff 6 Months M45.0 - Ankylosing spondylitis of multiple sites in spine, Z79.899 - Other long filler cigar roller machine (current) drug therapy Comprehensive Met. Panel 6 Months M45.0 - Ankylosing spondylitis of multiple sites in spine, Z79.899 - Other long filler cigar roller machine (current) drug therapy C Reactive Protein 6 Months M45.0 - Ankylosing spondylitis of multiple sites in spine, Z79.899 - Other [facility] (current) drug therapy Erythrocyte Sedimentation Rate 6 Months M45.0 - Ankylosing spondylitis of multiple sites in spine, Z79.899 - Other long filler cigar roller machine (current) drug therapy Coding Level of Care Code Est Pt Level 4 (85462) Diagnoses Ankylosing spondylitis of multiple sites in spine M45.0 Ankylosing spondylitis location: multiple sites in spine Long-term use of immunosuppressant medication Z79.899 Latent tuberculosis by blood test Z22.7
[2024-02-25 12:45] VITALS: BP 120/70; PULSE 97; O2SAT 96; BMI 29.0
== END 2024-02-25 12:59 | disposition home or self-care (01) ==
PROVIDERS: PCP Internal Medicine; Visit Provider Student in an Organized Health Care Education/Training Program
DX: M45.0 Ankylosing spondylitis of multiple sites in spine (principal); Z79.899 Other long term (current) drug therapy; Z22.7 Latent tuberculosis
CPT/HCPCS: 99214

== ENCOUNTER → 2024-02-25 12:37 | Outpatient (BNVA) | payer OTHER, SELFPAY | PROVIDERS: PCP Internal Medicine; Visit Provider Student in an Organized Health Care Education/Training Program | DX: M45.0 Ankylosing spondylitis of multiple sites in spine (principal); Z22.7 Latent tuberculosis; Z79.899 Other long term (current) drug therapy | CPT/HCPCS: 99212 ==

== ENCOUNTER 2024-06-18 09:35 | Outpatient (REF) | payer OTHER, SELFPAY ==
[2024-06-18 09:50] LABS: MANUAL DIFF FLAG NO
--- OUTSIDE RECORDS SUMMARY | 2024-06-18 10:20 | XMS_ITS | Clinical Summary ---
Author Organization [facility] Address [address] [place] [address] Care Team Providers Care Tractor Trailer Truck Driver Name Role Phone Unavailable Primary Care Provider Unavailabl e Source Comments PLEASE NOTE, if this patient is a minor, it may be UNLAWFUL to discuss sensitive information that is contained in these records (such as FAMILY PLANNING, MENTAL HEALTH or SUBSTANCE ABUSE) with the minor patient's parent or other person without the patient's specific authorization.[facility] Medications ibuprofen (ADVIL,MOTRIN) 600 mg tablet Take 1 Tab by mouth 4 (four) times daily as needed for pain 20 Tab 12/19/2017 Active penicillin V potassium (VEETID) 500 mg tablet Take 1 Tab by mouth 4 (four) times daily 20 Tab 12/19/2017 Active Active Problems No known active problems Social History Tobacco Use Types Packs/Day Years Used Date Smoking Tobacco: Never Assessed Social Connections Answer Date Recorded Connectedness 0 10/31/2023 Financial Resource Strain Answer Date R ecorded Financial Resource Strain 0 2020 Stress Answer Date Recorded Stress 0 11/05/2020 Physical Activity Answer Date Recorded Physical Activity 0 11/05/2020 Food Insecurity Answer Date Recorded Food 0 11/07/2023 Transportation Needs Answer Date Record ed Transportation 0 11/05/2020 Housing Stability Answer Date Recorded Housing 0 11/05/2020 Safety and Environment Answer Date Bunny rded Safety 0 11/05/2020 Utilities Answer Date Recorded Utilities 0 11/05/2020 Employment Answer Date Recorded Stress 0 10/31/2023 Sex and Gender Information Value Date Recorded Sex Assigned at Not on file Legal Sex Male 6:55 AM PST Gender Identity Not on file Sexual Orientation Not on file Last Filed Vital Signs Vital Sign Reading Time Taken Comments Blood Pressure 118/80 07/05/2023 9:03 AM EDT Pulse 55 07/05/2023 9:03 AM EDT Temperature - - Respiratory Rate - - Oxygen Saturation - - Inhaled Oxygen Concentration - - Weight - - Height - - Body Mass Index - - Plan of Treatment Health Maintenance Due Date Last Done Comments Anxiety Screening 1988 Hepatitis B Screening 1988 Hepatitis C Screening 1988 Tobacco Screening 1988 HIV Screening 05/19/2003 Imm-Hepatitis B (1 of 3 - 19 + 3-dose series) 05/19/2007 Diabetes Screening 03/24/2021 03/24/2018 [id number] ( season) 2023 021, 05/25/2020 Imm-Influenza (#1) 2023 02/13/2018 Alcohol and Drug Screen 02/12/2024 Depression Annual Screen 02/12/2024 Dental BW 07/06/2024 07/05/2023 Dental Examination 07/06/2024 07/05/2023 Dental Perio Charting 07/06/2024 07/05/2023 Dental Prophy 07/06/2024 07/05/2023 Hypertension Screening (#1) 07/04/2026 Dental FMX/Pano 12/29/2027 12/26/2022 Imm-DTaP/Tdap/Td (2 - Td or Tdap) 02/14/2028 019 Procedures Procedure Name Priority Date/Time Associated Diagnosis Comments BITEWINGS - FOUR RADIOGRAPHIC IMAGES Routine 07/05/2023 9:00 AM EDT Caries of enamel (incipient) PROPHYLAXIS - ADULT Routine 07/05/2023 9 :00 AM EDT Caries of enamel (incipient) PERIODIC ORAL EVALUATION ESTABLISHED PATIENT Routine 07/05/2023 9:00 AM EDT Caries of enamel (incipient) PANORAMIC RADIOGRAPHIC IMAGE Routine 12/26/2022 9:00 AM EST Periapical abscess of tooth with fistula from Last 3 Months or Most Recently Relevant to Health Maintenance Insurance [place] MED[place] HEALTH SAFETY NET DENTAL [facility] DENTAL [place] [id number]
[2024-06-18 10:57] LABS: Basophils Percent Auto 0.2 % (0-2); Eosinophils Absolute Auto 0.1 X10*3/uL (0.0-0.4); Hematocrit 41.8 % (42.0-52.0); Hemoglobin 14.8 g/dl (14.0-18.0); Imm Gran Abs Auto 0.03 X10*3/uL (0.00-0.03); Imm Gran Pct Auto 0.5 % (0.0-0.4); Lymphocytes Absolute Auto 2.3 X10*3/uL (1.2-4.9); Lymphocytes Percent Auto 39.4 % (20-40); Mean Corpuscular HGB Conc 35.4 g/dl (31.0-36.0); Mean Corpuscular Volume 87.4 fL (80.0-98.0); Mean Platelet Volume 11.4 fL (9.4-12.4); Monocytes Absolute Auto 0.5 X10*3/uL (0.1-1.2); Monocytes Percent Auto 7.8 % (2-11); Neutrophils Percent Auto 51.1 % (45-73); Platelet Count 193 X10*3/uL (160-400); Red Blood Count 4.78 X10*6/uL (4.60-5.80); Red Cell Distribution Width 12.5 % (11.0-16.0); White Blood Count 5.9 X10*3/uL (4.8-10.8)
[2024-06-18 11:30] LABS: Alanine Aminotransferase 53 U/L (0-40); Albumin Level 4.1 g/dL (3.5-5.0); Alkaline Phosphatase 58 U/L (39-117); Anion Gap 10 (12-20); Aspartate Amino Transferase 32 U/L (5-37); Bilirubin Total 0.7 mg/dL (0.0-1.0); Blood Urea Nitrogen 13 mg/dL (9-16); C Reactive Protein 0.44 mg/dL (< or = 0.50); Calcium 9.1 mg/dL (8.4-10.2); Carbon Dioxide 26 mmol/L (22-29); Chloride 106 mmol/L (96-108); Estimated Glomerular Filt Rate > 60; Glucose Random 97 mg/dL (60-115); Sodium 138 mmol/L (135-145); Total Protein 7.6 g/dL (6.5-8.0)
[2024-06-18 11:35] LABS: Erythrocyte Sedimentation Rate 29 MM/HR (0-15)
== END 2024-06-18 09:36 | disposition home or self-care (01) ==
LOC: HO.LAB 09:35
PROVIDERS: PCP Internal Medicine; Visit Provider Student in an Organized Health Care Education/Training Program
DX: M45.0 Ankylosing spondylitis of multiple sites in spine (principal); Z79.899 Other long term (current) drug therapy
CPT/HCPCS: 36415; 80053; 85025; 85652; 86140

== ENCOUNTER 2024-10-16 10:52 | Outpatient (REF) | payer OTHER, SELFPAY ==
[2024-10-16 13:16] LABS: MANUAL DIFF FLAG NO
[2024-10-16 13:29] LABS: Hematocrit 42.4 % (42.0-52.0); Hemoglobin 14.5 g/dl (14.0-18.0); Imm Gran Abs Auto 0.02 X10*3/uL (0.00-0.03); Imm Gran Pct Auto 0.3 % (0.0-0.4); Lymphocytes Absolute Auto 2.1 X10*3/uL (1.2-4.9); Mean Corpuscular HGB Conc 34.2 g/dl (31.0-36.0); Mean Corpuscular Hemoglobin 31.4 pg (27.0-33.0); Mean Corpuscular Volume 91.8 fL (80.0-98.0); NRBC Abs Auto 0.000 X10*3/uL (0.0-0.012); NRBC Pct Auto 0.0 /100WBC (0.0-0.2); Platelet Count 178 X10*3/uL (160-400); Red Blood Count 4.62 X10*6/uL (4.60-5.80); White Blood Count 6.1 X10*3/uL (4.8-10.8)
[2024-10-16 18:14] LABS: Alanine Aminotransferase 56 U/L (0-40); Albumin Level 4.3 g/dL (3.5-5.0); Alkaline Phosphatase 60 U/L (39-117); Anion Gap 16 (12-20); Aspartate Amino Transferase 38 U/L (5-37); Blood Urea Nitrogen 15 mg/dL (9-16); Calcium 8.8 mg/dL (8.4-10.2); Carbon Dioxide 25 mmol/L (22-29); Chloride 104 mmol/L (96-108); Estimated Glomerular Filt Rate > 60; Potassium 3.7 mmol/L (3.3-5.1); Sodium 141 mmol/L (135-145); Total Protein 7.8 g/dL (6.5-8.0)
[2024-10-19 04:18] LABS: HBS Num1 20.53 mIU/mL (0-7.99); HBc Num1 0.07 S/CO (0.00-0.79); HBsAGNum1 0.43 S/CO (0.00-0.99); Hepatitis A Antibody IgM 0.18 Index (0-0.79); Hepatitis B Surface Antigen Negative (Negative); ~HepC Num1 0.11 S/CO (0.00-0.79); ~Hepatitis A Antibody IgM Nonreactive (Nonreactive); ~Hepatitis B Surface Antibody REACTIVE (Nonreactive); ~Hepatitis C Antibody Nonreactive (Nonreactive)
== END 2024-10-16 10:53 | disposition home or self-care (01) ==
LOC: HO.HKASLDS 10:52
PROVIDERS: Visit Provider Student in an Organized Health Care Education/Training Program
DX: M45.0 Ankylosing spondylitis of multiple sites in spine (principal); Z01.84 Encounter for antibody response examination; Z11.59 Encounter for screening for other viral diseases
CPT/HCPCS: 36415; 80053; 85025; 85652; 86140; 86481; 86704; 86706; 86709; 86803; 87340

== ENCOUNTER 2024-10-21 08:15 | Outpatient (AMB) | payer OTHER, SELFPAY ==
--- NOTE | 2024-10-21 08:19 | MHC.OFFVIS ---
Vital Signs 10/21/24 08:25 Height 5 ft 5 in Weight 178 lb 12.718 oz BMI 29.7 BP 132/90 H Blood Pressure Location Lt brachial Position Sitting Pulse 70 Pulse Source Pulse Oximeter Pulse Oximetry (%) 98 Oxygen Delivery Method Room Air Intake Visit Reasons: Intake Note: Patient presents for follow up. Allergies No Known Allergies Allergy (Verified 10/21/24 08:25) Medication List - Last Reconciled 10/21/24 by Jaqueline Taveras MD adalimumab-aaty 40 mg (0.4 mL) subcut QWEEK NS HPI Comments Details: Patient is a 34-year-old male with ankylosing spondylitis here today for follow up Interval History: Patient last seen 02/25/[address] Roper - On adalimumab-aaty 40mg SC every week - Reports intermittent pain and stiffness of his upper thoracic spine but overall doing well with no morning stiffness denies any swollen joints - No inflammatory eye complaints Today, - On adalimumab-aaty 40mg SC every week - Last ophthal visit 2-3 years ago - No eye complaints - Reports that he feels his back is always tight Rheumatologic History: Onset ? 2012, cervical, thoracic and lumbar involvement. HLA b27 status unknown (? Test Not covered by insurance) Hx of recurrent uveitis Humira started 01/28 effective, advanced to weekly 03/2023 effective Current Rheumatology Medication(s): Adalimumab-aaty 40mg SC every week [facility] Medical History Carpal tunnel syndrome of left wrist Long-term use of immunosuppressant medication History of uveitis Latent tuberculosis by blood test Ankylosing spondylitis Surgical History No history of previous surgery Family History Mother No problems noted. 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 Review of Systems Const Details: Review of Systems Constitutional: Denies fever, chills, weight loss ENT: Denies vision changes, eye pain or eye redness, dental caries, dry mouth GI: Denies nausea, vomiting, diarrhea, abdominal pain, change in BM Pulm: Denies SOB, CONTRERAS, hemoptysis, wheezing Cards: Denies chest pain, palpitations Skin: Denies Raynaud's, rash, nail changes, photosensitivity, HOT METAL MIXER OPERATOR HELPER: Denies headaches, weakness, paresthesias, recurrent falls MSK: as per HPI All other systems reviewed and are unremarkable except noted above Physical Exam Exam Exam: Vital signs reviewed Physical Examination CONSTITUITIONAL Patient alert and cooperative. Well appearing and in no apparent painful distress MSK Hands Right Hand: Able to make a fist. No swelling or tenderness to palpation of the MCPs, PIPs or DIPs. No deformities noted. Left Hand: Able to make a fist. No swelling or tenderness to palpation of the MCPs, PIPs or DIPs. No deformities noted. Wrists Right Wrist: Full ROM to flexion and extension. No swelling or TTP Left Wrist: Full ROM to flexion and extension. No swelling or TTP Elbows Right Elbow: Full ROM. No swelling or TTP. No TTP of the medial epicondyle. No TTP of the lateral epicondyle Left Elbow: Full ROM. No swelling or TTP. No TTP of the medial epicondyle. No TTP of the lateral epicondyle Shoulders Right shoulder: Full ROM. No swelling noted. No TTP of the AC joint. No TTP of the subacromial bursa. No TTP of the posterior shoulder Left shoulder: Full ROM. No swelling noted. No TTP of the AC joint. No TTP of the subacromial bursa. No TTP of the posterior shoulder Knees Right knee: Full ROM. No swelling noted. No TTP of the knee joint line. No TTP of pes anserine bursa Left knee: Full ROM. No swelling noted. No TTP of the knee joint line. No TTP of pes anserine bursa. Ankles Right ankle: Good ankle dorsiflexion and plantar flexion. No swelling. No TTP of the ankle joint Left ankle: Good ankle dorsiflexion and plantar flexion. No swelling. No TTP of the ankle joint Feet Right foot: Negative squeeze test Left foot: Negative squeeze test Tender points? No tenderness to palpation of the bilateral trapezius, supraspinatus, anterior costochondral junctions, bilateral suboccipital muscle insertions Spine Decreased mobility of the spine Vital Signs: BMI result Body Mass Index 29.7 Results Reviewed Results Reviewed: Laboratory Tests 06/18/24 10/16/24 09:47 10:54 WBC 6.1 RBC 4.62 Hgb 14.5 Hct 42.4 Plt Count 178 ESR 29 H 16 H Sodium 141 Potassium 3.7 Chloride 104 Carbon Dioxide 25 BUN 15 Creatinine 0.81 AST 32 38 H ALT 53 H 56 H C-Reactive Protein 0.44 0.72 H Laboratory Tests 10/16/24 10:54 Hepatitis A IgM Ab Nonreactive Hep Bs Antigen Negative Hep Bs Antibody REACTIVE Hep B Core Total Ab Nonreactive Hepatitis C Ab (EIA) Nonreactive TB Test (T-Spot) Com Pending Assessment & Plan Assessment & Plan (1) Ankylosing spondylitis: Comment: Onset ? 2012, cervical, thoracic and lumbar involvement. HLA b27 status unknown (? Test Not covered by insurance) Hx of recurrent uveitis Humira started 01/28 effective, advanced to weekly 03/2023 effective Code(s): M45.9 - Ankylosing spondylitis of unspecified sites in spine Category: Medical Qualifiers: Ankylosing spondylitis location: multiple sites in spine Qualified Code(s): M45.0 - Ankylosing spondylitis of multiple sites in spine Plan: #Ankylosing spondylitis Patient is a 34-year-old male with ankylosing spondylitis here today for follow up Patient currently stable. Has not seen an adhesive bandage making operator for 2-3 years however denies any eye symptoms including eye redness or eye pain. No evidence of active disease at this time we will continue adalimumab Plan - Adalimumab-atty 40mg SC every week - Follow up with ophthalmology - RTC 6 month - Labs before visit: CBC, CMP, ESR, CRP (2) Latent tuberculosis by blood test: Comment: INH started 10/29 - finishing off 07/30 Code(s): Z22.7 - Latent tuberculosis Category: Medical Plan: #Latent Tb Patient with a history of latent TB. Completed isoniazid (3) Encounter for monitoring of adalimumab therapy: Code(s): Z51.81 - Encounter for therapeutic drug level monitoring; Z79.620 - terminal computer operator (current) use of immunosuppressive biologic Plan: #Long-term Use of TNF Inhibitors: Adalimumab-aaty Discussed with the patient the benefits and risks of TNF inhibitors for the management of the rheumatic condition Benefits include reduce pain, maintenance of remission and reduction of flares as well as progression of the disease Risks include injection sites/infusion reactions, serious infections (such as bacterial infections, opportunistic infections), malignancy, delaminating syndromes, autoimmune phenomena, CHF exacerbations, palmar plantar psoriasis and cytopenias Recommended rotating injection sites, and holding medication during and for up to 1 week after resolution of a febrile illness or open skin wound Plan This is my first visit with this patient. 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
[2024-10-21 08:25] VITALS: BP 132/90; PULSE 70; O2SAT 98; BMI 29.7
--- OUTSIDE RECORDS SUMMARY | 2024-10-21 09:25 | XMS_ITS | Encounter Summary ---
Author Organization [facility] Address [address] [place] [address] Care Team Providers Care Commercial Sales Specialist Name Role Phone Mariano Cummins MD Primary Care Provider [phone] Encounter Details Date Type Department Care Team Description 10/26/2019 Orders Only Internal Medicine - [address], [address] [place] [address] Mariano Cummins MD [address] [place] [address] Social History Tobacco Use Types Packs/Day Years Used Date Smoking Tobacco: Former Cigarettes 0.5 5 Smokeless Tobacco: Never Comments:quit x 2 months Alcohol Use Standard Drinks/Week Comments Yes 0 (1 standard drink = 0.6 oz pur e alcohol) 4-5 drinks on a weekend Sex Assigned at Date Recorded Not on file Job Start Date Occupation Industry Not on file Not on file Not on file COVID-19 Exposure Response Date Recorded In the last month, have you been in contact with someone who was confirmed or suspected to have Coronavirus / COVID-19? No / Unsure 10/26/2019 8:48 AM EDT documented as of this encounter Plan of Treatment Not on file documented as of this encounter Visit Diagnoses Not on filedocumented in this encounter Care Teams Commercial Sales Specialist Relationship Specialty Start Date End Date Mariano Cummins MD [address] [place] [address] PCP - General Internal Medicine 07/26/17 documented as of this encounter
--- OUTSIDE RECORDS SUMMARY | 2024-10-21 09:25 | XMS_ITS | Encounter Summary ---
Author Organization [facility] Address [address] [place] [address] Care Team Providers Care Library Information Technician Name Role Phone Mariano Cummins MD Primary Care Provider [phone] Reason for Visit * Reason Comments E-prescribe Rx Request Encounter Details Date Type Department Care Team Description 11/09/2018 Refill Rheumatology - [address] [address] Morales Cordova MD E-prescribe Rx Request Social History Tobacco Use Types Packs/Day Years Used Date Smoking Tobacco: Every Day Cigarettes 0.5 5 Smokeless Tobacco: Never Alcohol Use Standard Drinks/Week Comments Yes 0 (1 standard drink = 0.6 oz pur e alcohol) 4-5 drinks on a weekend Sex Assigned at Date Recorded Not on file Job Start Date Occupation Industry Not on file Not on file Not on file documented as of this encounter Miscellaneous Notes * Telephone Encounter - Glendy Huan - 11/10/2018 10:55 AM EDT Refill request. 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
--- OUTSIDE RECORDS SUMMARY | 2024-10-21 09:25 | XMS_ITS | Encounter Summary ---
Author Organization [facility] Address [address] [place] [address] Care Team Providers Care Traffic Control Signaler Name Role Phone Mariano Cummins MD Primary Care Provider [phone] Encounter Details Date Type Department Care Team Description 11/12/2022 Manager Video Games Report Medical Records [address] [place] [address] Morales Cordova MD Social History Tobacco Use Types Packs/Day Years Used Date Smoking Tobacco: Some Days Cigarettes 0.5 5 Smokeless Tobacco: Never Comments:3-4 per day Alcohol Use Standard Drinks/Week Comments Yes 0 (1 standard drink = 0.6 oz pur e alcohol) 4-5 drinks on a weekend Sex Assigned at Date Recorded Not on file Job Start Date Occupation Industry Not on file Not on file Not on file documented as of this encounter Plan of Treatment Not on file documented as of this encounter Visit Diagnoses Not on filedocumented in this encounter Care Teams Traffic Control Signaler Relationship Specialty Start Date End Date Mariano Cummins MD [address] [place], [place] [id number] PCP - General Internal Medicine 07/26/17 documented as of this encounter
--- OUTSIDE RECORDS SUMMARY | 2024-10-21 09:25 | XMS_ITS | Clinical Summary ---
Author Organization [facility] Address [address] [place] [address] Care Team Providers Care Suspension Cord Tier Name Role Phone Mariano Cummins MD Primary Care Provider [phone] Allergies No known active allergies Medications Medication Sig Dispensed Refills Start Date End Date Status Adalimumab (Humira Pen) 40 MG/0.4ML Pen-injector KitIndications:Ankylosi ng spondylitis of multiple sites in spine (HCC) Inject 40 mg into the skin every 14 days. 2 Each 5 01/26/2021 Active Active Problems Problem Noted Date Hypertriglyceridemia 10/28/2017 Latent tuberculosis by blood test 2017 Overview: INH started 10/29 - finishing off 07/30 Chronic midline thoracic back pain 10/07 History of uveitis 10/07/2017 Overview: X 2 Initial episode ~ 2011 Ankylosing spondylitis of multiple sites in spine 10/07/2017 Overview: Onset ? 2013, cervical, thoracic and lumbar involvement Hx of recurrent uveitis Humira started 01/28 Immunizations Name Administration Dates Next Due COVID-19 (Moderna) 06/22/2020,05/25/2020 Influenza Vaccine-preservati ve Free-quadrivalent 4 Years 02/13/2018 Tdap 02/13/2018 Family History Medical History Relation Name Comments No Known Problems Mother Relation Name Status Comments Mother Alive Social History Tobacco Use Types Packs/Day Years [...] file Not on file Not on file Last Filed Vital Signs Vital Sign Reading Time Taken Comments Blood Pressure 120/64 01/26/2021 10:17 AM EST Pulse 76 01/26/2021 10:17 AM EST Temperature 36.8 C (98.2 F) 04/30/2019 8:51 AM EDT Respiratory Rate 12 01/26/2021 10:17 AM EST Oxygen Saturation - - Inhaled Oxygen Concentration - - Weight 76 kg (167 lb 9.6 oz) 01/26/2021 10:17 AM EST Height 165.1 cm (5' 5 ) 01/26/2021 10:17 AM EST Body Mass Index 27.89 01/26/2021 10:17 AM EST Plan of Treatment Health Maintenance Due Date Last Done Comments BMI CHECK/ADVISE 02/12/2024 01/26/2021, 10/2018, 07/21/2018, Additional history exists DEPRESSION SCREENING/FOLLOWUP 02/12/2024 SOCIAL NEEDS SCREENING 02/12/2024 Covid-19 Vaccine (3 - 2022-2 4 season) 2024 06/22/2020, 05/25/2020 INFLUENZA (#1) 2024 02/13/2018 BASELINE HEALTH EXAM 18-39 10/25/2024 10/26/2019, CHOLESTEROL SCREENING 10/25/2024 10/26/2019 DTAP/TDAP/TD (2 - Td or Tdap) 02/14/2028 02/13/2018 PNEUMOCOCCAL VACCINE FOR HIG H RISK PATIENTS (#1) 2053 Care Teams Suspension Cord Tier Relationship Specialty Start Date End Date Mariano Cummins MD [address] [place] [address] PCP - General Internal Medicine 07/26/17
--- OUTSIDE RECORDS SUMMARY | 2024-10-21 09:25 | XMS_ITS | Encounter Summary ---
Author Organization [facility] Address [address] [place] [address] Care Team Providers Care Retail Shift Leader Name Role Phone Mariano Cummins MD Primary Care Provider [phone] Reason for Visit * Reason Comments E-prescribe Rx Request Encounter Details Date Type Department Care Team Description 01/21/2019 Refill Rheumatology - [address] [address] Mariano Cummins MD [address] [place] [address] E-prescribe Rx Request Social History Tobacco Use [...] encounter Miscellaneous Notes * Telephone Encounter - Linn Delvalle M.A. - 01/21/2019 9:40 AM EST Refill sent to pcp * Telephone Encounter - Oksana Olsen - 01/21/2019 8:36 AM EST Patient would like script to be: E-PRESCRIBED/FAXED TO PHARMACY WHEN WAS THE PATIENT'S LAST APPOINTMENT IN ADULT MEDICINE? 10.22.2018 WHEN WAS THE LAST TIME THE PATIENT SAW THEIR PCP? Same as above Does patient have an upcoming appointment? Yes 04.30.2019 (THE MEDICATION REQUESTED IS ON THE MED LIST ABOVE) All of the medications requested were on the CURRENT MEDS list Did you check the Pharmacy information above?: YES Patient wants: 30 -day supply Is this a mail order prescription request ? NO If the refill is from a FAXED refill request what is the RX # listed on the fax? N/A Patients current insurance carrier is: Payor: [facility] / Plan: CC-[place] SILVER TYPE 3 / Product Type: HMO [id number] documented in this encounter Plan of Treatment Not on file documented as of this encounter Visit Diagnoses Diagnosis Chronic midline thoracic back pain documented in this encounter Care Teams Retail Shift Leader Relationship Specialty Start Date End Date Mariano Cummins MD [address] [place], [place] [id number] PCP - General Internal Medicine 07/26/17 documented as of this encounter
--- OUTSIDE RECORDS SUMMARY | 2024-10-21 09:25 | XMS_ITS | Clinical Summary ---
Author Organization [facility] Address [address] [place] [address] Care Team Providers Care Content Strategy Lead Name Role Phone Unavailable Primary Care Provider [...] 3-dose series) 05/19/2007 Diabetes Screening 03/24/2021 03/24/2018 Alcohol and Drug Screen 02/12/2024 Depression Annual Screen 02/12/2024 Dental BW 07/06/2024 07/05/2023 Dental Examination 07/06/2024 07/05/2023 Dental Perio Charting 07/06/2024 07/05/2023 Dental Prophy 07/06/2024 07/05/2023 [id number]-94 ( season) 2024 021, 05/25/2020 Imm-Influenza (#1) 2024 02/13/2018 Hypertension Screening (#1) 07/04/2026 Dental FMX/Pano 12/29/2027 [...] Most Recently Relevant to Health Maintenance Insurance [place] HE[place] SAF[place]Y NET DENTAL [facility] DENTAL [place] [id number]
--- OUTSIDE RECORDS SUMMARY | 2024-10-21 09:25 | XMS_ITS | Encounter Summary ---
Author Organization [facility] Address [address] [place] [address] Care Team Providers Care Casino Worker Name Role Phone Mariano Cummins MD Primary Care Provider [phone] Encounter Details Date Type Department Care Team Description 07/12/2022 Collator Report Medical Records [address] [place] [address] Morales Cordova MD Social History Tobacco Use [...] on filedocumented in this encounter Care Teams Casino Worker Relationship Specialty Start Date End Date Maraino Cummins MD [address] [place], [place] [phone] PCP - General Internal Medicine 07/26/17 documented as of this encounter
--- OUTSIDE RECORDS SUMMARY | 2024-10-21 09:25 | XMS_ITS | Encounter Summary ---
Author Organization [facility] Address [address] [place] [address] Care Team Providers Care Set Up Technician Name Role Phone Mariano Cummins MD Primary Care Provider [phone] Reason for Visit * Reason Comments E-prescribe Rx Request Encounter Details Date Type Department Care Team Description 10/03/2018 Refill Rheumatology - [place] [address] [place] [address] Morales Cordova MD E-prescribe Rx Request Social [...] encounter Miscellaneous Notes * Telephone Encounter - Christy Bravo - 10/03/2018 9:49 AM EDT Patient would like script to be: E-PRESCRIBED/FAXED TO PHARMACY WHEN WAS THE PATIENT'S LAST APPOINTMENT IN ADULT MEDICINE? 02/13/18 WHEN WAS THE LAST TIME THE PATIENT SAW THEIR PCP? Same as above Does patient have an upcoming appointment? Yes 10/22/18 (THE MEDICATION REQUESTED IS ON THE MED [...] N/A Patients current insurance carrier is: Payor: [facility] / Plan: [facility]ILVER TYPE 3 / Product Type: HMO [id number] * Telephone Encounter - Chanell Rosas L.P.N. - 10/03/2018 9:18 AM EDT Please forward to eugene rubio documented in this encounter Plan of Treatment Not on file documented as of this encounter Visit Diagnoses Diagnosis Chronic midline thoracic back pain documented in this encounter Care Teams Set Up Technician Relationship Specialty Start Date End Date Mariano Cummins MD [address] [place] [address] PCP - General Internal Medicine 07/26/17 documented as of this encounter
--- OUTSIDE RECORDS SUMMARY | 2024-10-21 09:25 | XMS_ITS | Encounter Summary ---
Author Organization [facility] Address [address] [place] [address] Care Team Providers Care Utility Worker Production Name Role Phone Mariano Cummins MD Primary Care Provider [phone] Encounter Details Date Type Department Care Team Description 03/19/2023 Garment Inspector Report Medical Records [address] [place] [address] Ne Santillan NP Social History Tobacco Use Types Packs/Day Years [...] on filedocumented in this encounter Care Teams Utility Worker Production Relationship Specialty Start Date End Date Mariaon Cummins MD [address] [place], [place] [id number] PCP - General Internal Medicine 07/26/17 documented as of this encounter
--- OUTSIDE RECORDS SUMMARY | 2024-10-21 09:25 | XMS_ITS | Encounter Summary ---
Author Organization [facility] Address [address] [place] [address] Care Team Providers Care Cryptological Technician Name Role Phone Mariano Cummins MD Primary Care Provider [phone] Reason for Visit * Reason Onset Date Comments APPOINTMENT 09/22/2019 6mo f/u Encounter Details Date Type Department Care Team Description 09/22/2019 Telephone [facility] - [address] [address] Morales Cordova MD APPOINTMENT (6mo f/u) Social History Tobacco Use Types Packs/Day Years [...] encounter Miscellaneous Notes * Telephone Encounter - Alessandra Aguilar M.A. - 09/22/2019 2:01 PM EDT Left voice message for patient to return call at earliest convenience to schedule 6mo f/u documented in this encounter Plan of Treatment Not on file documented as of this encounter Visit Diagnoses Not on filedocumented in this encounter Care Teams Cryptological Technician Relationship Specialty Start Date End Date Mariano Cummins MD [address] [place], [place] [id number] PCP - General Internal Medicine 07/26/17 documented as of this encounter
== END 2024-10-21 08:45 | disposition home or self-care (01) ==
LOC: HO.RHES 08:16
PROVIDERS: PCP Internal Medicine; Visit Provider Student in an Organized Health Care Education/Training Program
DX: M45.0 Ankylosing spondylitis of multiple sites in spine (principal); Z22.7 Latent tuberculosis; Z51.81 Encounter for therapeutic drug level monitoring; Z79.620 Long term (current) use of immunosuppressive biologic
CPT/HCPCS: 99215

== ENCOUNTER → 2024-10-21 08:15 | Outpatient (BNVA) | payer OTHER, SELFPAY | PROVIDERS: PCP Internal Medicine; Visit Provider Student in an Organized Health Care Education/Training Program | DX: M45.0 Ankylosing spondylitis of multiple sites in spine (principal); Z22.7 Latent tuberculosis; Z51.81 Encounter for therapeutic drug level monitoring; Z79.620 Long term (current) use of immunosuppressive biologic | CPT/HCPCS: 99212 ==

== ENCOUNTER 2024-11-05 10:35 | Outpatient (REF) | payer OTHER, SELFPAY ==
[2024-11-08 20:39] LABS: TS Negative Control Passed; TS Panel A 15; TS Panel B 0; TS Positive Control Passed; TSpotTB Positive (Negative)
== END 2024-11-05 10:36 | disposition home or self-care (01) ==
LOC: HO.HKASLDS 10:35
PROVIDERS: Visit Provider Student in an Organized Health Care Education/Training Program
DX: Z11.1 Encounter for screening for respiratory tuberculosis (principal); M45.0 Ankylosing spondylitis of multiple sites in spine
CPT/HCPCS: 36415; 86481